=== PATIENT | female | born 1980 | race Hispanic/Latino ===

== ENCOUNTER 2022-04-26 14:41 | Emergency (ER) | payer OTHER ==
[~2022-04-26] VITALS: Ht 167.6 cm; Wt 79.4 kg
[2022-04-26] MEDS ORDERED: ASPIRIN 81 MG CHEW TAB PO ONE (16:00)
[2022-04-26] MEDS ORDERED: DIAZEPAM 5 MG TAB PO STA (16:07)
[2022-04-26 16:10] LABS: BASOPHILS # (AUTO) 0.1 (0.0-0.1); BASOPHILS % 0.6 % (0.0-1.0); HEMATOCRIT 37.7 % (34.2-44.1); HEMOGLOBIN 12.5 g/dL (12.0-16.0); LYMPHOCYTES # (AUTO) 0.7 (1.0-3.2); LYMPHOCYTES % 8.5 % (18.0-39.1); MEAN CORPUSCULAR HGB CONC 33.2 g/dL (31-35); MEAN CORPUSCULAR VOLUME 90.6 fL (81-99); MONOCYTES # (AUTO) 0.2 (0.2-0.8); MONOCYTES % 2.3 % (4.4-11.3); NEUTROPHILS # (AUTO) 7.5 (2.1-6.9); NEUTROPHILS % 88.1 % (38.7-80.0); PLATELET COUNT 289 x10e3/uL (140-360); RED BLOOD COUNT 4.16 x10e6/uL (3.6-5.1); RED CELL DISTRIBUTION WIDTH 13.3 % (11.7-14.4)
[2022-04-26] MEDS ORDERED: SODIUM CHLORIDE 0.9% 1000ML 1,000 ML IV STA (16:14)
[2022-04-26] MEDS ORDERED: ACETAMINOPHEN 325 MG TAB PO ONE (16:15)
[2022-04-26 16:22] LABS: ALANINE AMINOTRANSFERASE 16 IU/L (0-55); ALBUMIN/GLOBULIN RATIO 1.4 (0.8-2.0); ALKALINE PHOSPHATASE 51 IU/L (40-150); BLOOD UREA NITROGEN 15 mg/dL (7-26); BUN/CREATININE RATIO 12 (6-25); CARBON DIOXIDE 18 mmol/L (22-29); CHLORIDE 109 mmol/L (98-107); CREATINE KINASE 77 IU/L (29-168); CREATININE, SERUM 1.21 mg/dL (0.57-1.11); GLUCOSE 127 mg/dL (74-118); SODIUM 141 mmol/L (136-145)
[2022-04-26 16:44] LABS: AMPHETAMINES SCREEN,URINE NEGATIVE (NEGATIVE); BENZODIAZEPINES SCREEN,URINE NEGATIVE (NEGATIVE); PHENCYCLIDINE SCREEN,URINE NEGATIVE (NEGATIVE)
[2022-04-26] MEDS ORDERED: AZITHROMYCIN250 MG PO (17:32)
[2022-04-26] MEDS ORDERED: AMLODIPINE BESYL5 MG PO (17:41)
[2022-04-26] MEDS ORDERED: PROAIR HFA INH8.5 GM INH (17:42)
[2022-04-26 18:21] VITALS: BP 149/81
== END 2022-04-26 18:24 | disposition short-term general hospital (02) ==
LOC: ER 15:23
DX: R42 Dizziness and giddiness (principal); J40 Bronchitis, not specified as acute or chronic; R20.2 Paresthesia of skin; R51.9 Headache, unspecified; N28.9 Disorder of kidney and ureter, unspecified; R03.0 Elevated blood-pressure reading, without diagnosis of hypertension; Z98.84 Bariatric surgery status; F17.210 Nicotine dependence, cigarettes, uncomplicated
CPT/HCPCS: 36415; 70450; 71045; 71260; 80053; 80307; 82550; 82553; 84484; 84702; 85025; 93005; 99284; J7030

== ENCOUNTER 2022-06-05 10:42 | Emergency (ER) | payer OTHER ==
[~2022-06-05] VITALS: Ht 167.6 cm; Wt 79.4 kg
[~2022-06-05 10:42] MED LIST: AMLODIPINE BESYL5 MG PO; AZITHROMYCIN250 MG PO; PROAIR HFA INH8.5 GM INH
[2022-06-05] MEDS ORDERED: HYDROCODONE/APAP 5MG-325MG TAB PO ONE (11:15)
[2022-06-05] MEDS ORDERED: KETOROLAC TROMETHAMINE 60 MG/2 ML VIAL IM ONE (12:45)
[2022-06-05] MEDS ORDERED: AMOXICILLIN/CLAVULANATE K 875 MG TAB PO SCH (13:30)
== END 2022-06-05 13:05 | disposition home or self-care (01) ==
LOC: ER 10:57
DX: R22.9 Localized swelling, mass and lump, unspecified (principal); W01.0XXA Fall on same level from slipping, tripping and stumbling without subsequent striking against object, initial encounter; Y92.89 Other specified places as the place of occurrence of the external cause; M79.7 Fibromyalgia; E03.9 Hypothyroidism, unspecified; F41.9 Anxiety disorder, unspecified; J45.909 Unspecified asthma, uncomplicated; F17.210 Nicotine dependence, cigarettes, uncomplicated
CPT/HCPCS: 70450; 70486; 72125; 99284; J1885